=== PATIENT | male | born 1995 | race African-American/Black ===

== ENCOUNTER 2017-05-22 10:14 | Emergency (ER) | payer OTHER ==
[~2017-05-22] VITALS: Ht 175.3 cm; Wt 72.6 kg
[2017-05-22 10:38] VITALS: BP 143/101
[2017-05-22 10:41] LABS: HEMATOCRIT 41.8 % (42.0-52.0); MCH 30.9 pg (26.0-34.0); MCHC 33.6 g/dL (28.0-37.0); MCV 91.9 fL (80.0-100.0); PLATELET COUNT 229 thou/uL (150-400); RBC 4.54 mil/uL (4.50-6.00); RDW 12.5 % (10.5-14.5); WBC 11.2 thou/uL (4.0-11.0)
[2017-05-22 10:42] LABS: MANUAL DIFF YES
[2017-05-22 10:57] LABS: APTT 22.5 Seconds (24.5-32.8); INR 1.1; PROTIME 10.7 Seconds (9.3-11.4)
[2017-05-22 10:58] LABS: ANION GAP 17 mmol/L (7-16); BUN 11 mg/dL (7-18); CALCIUM 9.4 mg/dL (8.5-10.1); CHLORIDE 103 mmol/L (98-107); CO2 22 mmol/L (21-32); CREATININE 1.2 mg/dL (0.7-1.3); GLUCOSE 160 mg/dL (74-106); SODIUM 142 mmol/L (136-145)
[2017-05-22 11:03] LABS: ABSOLUTE NEUTROPHILS 3.5 thou/uL (1.4-8.2); ALBUMIN 4.4 g/dL (3.4-5.0); ALKALINE PHOSPHATASE 70 U/L (46-116); ATYPICAL LYMPHS 3 %; SALICYLATE 4.1 mg/dL (2.8-20.0); SGOT 19 U/L (15-37); SGPT 13 U/L (30-65); TOTAL BILIRUBIN 0.6 mg/dL (<0.1-1.0); TOTAL CELL COUNT 100; TOTAL PROTEIN 7.9 g/dL (6.4-8.2)
[2017-05-22 11:04] LABS: ACETAMINOPHEN < 2 ug/mL (10-30)
[2017-05-22 11:05] LABS: POTASSIUM 2.6 mmol/L (3.5-5.1)
== END 2017-05-22 10:20 | disposition short-term general hospital (02) ==
LOC: ER 10:14
PROVIDERS: Emergency Medicine
DX: S71.102A Unspecified open wound, left thigh, initial encounter (principal); S31.30XA Unspecified open wound of scrotum and testes, initial encounter; E87.6 Hypokalemia; F12.10 Cannabis abuse, uncomplicated; X95.8XXA Assault by other firearm discharge, initial encounter; Y93.89 Activity, other specified; Y92.89 Other specified places as the place of occurrence of the external cause; Y99.8 Other external cause status